=== PATIENT | male | born 1995 | race Caucasian/White ===

== ENCOUNTER 2017-02-13 00:10 | Emergency (ER) | payer BC ==
[~2017-02-13] VITALS: Ht 175.3 cm; Wt 81.5 kg
[2017-02-13 00:19] VITALS: BP 132/75; PULSE 92; TEMP 36.8; O2SAT 95; Ht 175.3 cm; Wt 81.5 kg
[2017-02-13] MEDS ORDERED: PARO10TA PO (00:49)
--- NOTE | 2017-02-13 01:01 | EMERGENCY ROOM VISIT NOTE ---
History First contact with patient: 00:26 Chief Complaint: HEAD INJURY (MINOR) Stated Complaint: MEMORY LOSS,DRY HEAVING,NECK SORENESS History of Present Illness The patient is a 22 year old male who presents to the Emergency Room with complaints of a head injury which occurred approximately one hour prior to arrival. The patient states that he was playing hockey and was hit by another player. He initially had difficulty remembering the injury, but states that his memory is coming back to him now. There was no loss of consciousness at the time. The patient states that he became nauseous shortly afterwards, but this has resolved. He was wearing a helmet. He reports a history of a concussion. He reports very mild pain in the right shoulder/neck which she rates a 2/10. He denies any headache, confusion, blurred vision or slurred speech. Review of Systems A complete 10 point review of systems was reviewed with the patient with pertinent positives and negatives as per history of present illness. All else were negative. Social History Smoking Status: Never Smoker Current/Historical Medications Scheduled Paroxetine Hcl (Paxil), 10 MG PO DAILY Physical Exam Vital Signs Date Time Temp Pulse Resp B/P (MAP) Pulse Ox O2 Delivery O2 Flow Rate FiO2 02/13/17 00:56 18 02/13/17 00:19 36.8 92 18 132/75 95 Room Air Physical Exam VITALS: Vitals are noted on the nurse's note and reviewed by myself. Vital signs stable. GENERAL: This is a 22-year-old male, in no acute distress, nondiaphoretic, well- developed well-nourished. SKIN: The skin was without erythema, edema, or bruising. HEAD: Normocephalic atraumatic. EARS: External auditory canals clear, tympanic membranes pearly starkey without erythema or effusion bilaterally. No hemotympanum. EYES: Pupils equal round and reactive to light and accommodation. Extraocular movements intact. MOUTH: Mucous membranes moist. NECK: Supple without nuchal rigidity. Cervical spine is nontender. HEART: Regular rate and rhythm without murmurs gallops or rubs. LUNGS: Clear to auscultation bilaterally without wheezes, rales or rhonchi. MUSCULOSKELETAL: There is mild tenderness of the right trapezius muscle. Full range of motion throughout. Strength 5/5 throughout. NEURO: Patient was alert and oriented to person place and time. Normal sensation to light and sharp touch. Deep tendon reflexes 2+ throughout. No focal neurological deficits. Medical Decision & Procedures Medical Decision Differential diagnosis includes concussion, intracranial hemorrhage, skull fracture, among others. The patient was evaluated as above. He sustained a head injury approximately one hour ago. The patient has very little symptoms at this time. Neurological exam is within normal limits. Options of care were discussed with the patient including CT to rule out further injury versus observation. The patient prefers discharged home without further imaging and I feel this is reasonable. The patient has not had loss of consciousness or vomiting. Customary head injury precautions were reviewed with the patient. He verbalizes understanding of my assessment and treatment plan and was discharged home in good condition. Head Trauma GCS Score: 15 Medication Reconcilliation Current Medication List: was personally reviewed by me Blood Pressure Screening Patient's blood pressure: Normal blood pressure Impression Primary Impression: Closed head injury Departure Information Dispostion Home / Self-Care Condition GOOD Referrals No Doctor, Assigned (PCP) Patient Instructions ED Head Injury Closed, My [facility] Additional Instructions You have been treated in the Emergency Department for a Closed Head Injury. For pain control, you can use the following [id number]-hanubkg medicines (if >12 yo): - Regular strength (325mg/tab) Tylenol (acetaminophen) 2 tabs every 4-6 hours as needed. Do not exceed 12 tablets in a 24 hour period. Avoid taking more than 4 grams (4000 mg) of Tylenol per day. This includes any other sources of acetaminophen you may take on a regular basis. - Regular strength (200 mg/tab) Advil (ibuprofen) 1-2 tabs every 4-6 hours as needed. Do not exceed a dose of 3200 mg per day. You should relax in a quiet, dark place for the rest of the day. Avoid any possible triggers including: cigarette smoke, caffeine, nicotine, chocolate, wine, beer, loud noises or music, or bright lights. You should schedule a follow-up appointment in 2-3 days with your Primary Care Provider or established Neurologist for further evaluation and treatment of your Headache. You should NOT return to athletic play until reevaluated by your [employer]. You should fully comply with their standard protocol regarding head injuries. Your Wh[employer]orer OR Primary Care Provider will have the final say in your return to athletic play. This timeframe should be AT LEAST 1 week AFTER the date of last symptoms experienced! This is ESSENTIAL to allow for adequate brain healing time and for reduced risk of re-injury. Return to the Emergency Department if your current symptoms worsen despite treatment course outlined above, or if you develop any of the following symptoms : intractable pain despite aforementioned treatment course, visual disturbances , loss of vision, unilateral weakness or facial drooping, slurring of speech, loss of coordination, or loss of consciousness. Problem Qualifiers Primary Impression: Closed head injury Encounter type: initial encounter Qualified Codes: S09.90XA - Unspecified injury of head, initial encounter
== END 2017-02-13 01:12 | disposition home or self-care (01) ==
LOC: C.EDB 00:12 → C.EDA 01:12
DX: S09.90XA Unspecified injury of head, initial encounter (principal); Y93.22 Activity, ice hockey; W50.0XXA Accidental hit or strike by another person, initial encounter; Z79.899 Other long term (current) drug therapy